=== PATIENT | female | born 2000 | race African-American/Black ===

== ENCOUNTER 2020-12-16 02:48 | Emergency (ER) | payer MEDICAID ==
[~2020-12-16] VITALS: Ht 167.6 cm; Wt 64.0 kg
[2020-12-16 04:32] LABS: BASOPHILS % 0.3 % (0.0-2.0); EOSINOPHILS % 0.2 % (0.0-5.0); HEMATOCRIT. 35.2 % (36.0-48.0); HEMOGLOBIN. 11.7 g/dL (12.0-16.0); LYMPHOCYTES % 10.9 % (20.0-50.0); MEAN CORPUSCULAR HEMOGLOBIN 30.9 pg (28.0-32.0); MEAN CORPUSCULAR VOLUME 92.7 fL (81.0-99.0); MEAN PLATELET VOLUME 8.6 fl (7.4-10.4); MONOCYTES % 6.6 % (2.0-8.0); PLATELET 219 x1000/uL (130-400); RED BLOOD CELL COUNT 3.79 mill/uL (4.2-5.4); RED CELL DISTRIBUTION WIDTH 14.1 % (11.6-14.6)
[2020-12-16 04:36] LABS: CHLORIDE 108 mEq/L (98-107)
[2020-12-16 04:45] LABS: ETHANOL BLOOD < 10 mg/dL
[2020-12-16 04:51] LABS: *AMPHETAMINES SCREEN URINE NEGATIVE (NEGATIVE); *BARBITURATES SCREEN URINE NEGATIVE (NEGATIVE); *BENZODIAZEPINES SCREEN URINE NEGATIVE (NEGATIVE); *COCAINE SCREEN URINE NEGATIVE (NEGATIVE); METHADONE URINE SCREEN NEGATIVE (NEGATIVE); OPIATES URINE SCREEN NEGATIVE (NEGATIVE); PHENCYCLIDINE URINE SCREEN NEGATIVE (NEGATIVE)
[2020-12-16 04:59] LABS: HCG SCREEN NEGATIVE
[2020-12-16 05:01] LABS: CANNABINOID URINE SCREEN PRESUMTIVE POSITIVE (NEGATIVE)
[2020-12-16 11:56] VITALS: BP 95/62
== END 2020-12-16 12:21 | disposition home or self-care (01) ==
LOC: ER 02:48
DX: R45.851 Suicidal ideations (principal); R45.1 Restlessness and agitation; F41.9 Anxiety disorder, unspecified; Z20.822 Contact with and (suspected) exposure to COVID-19
CPT/HCPCS: 36415; 80053; 80305; 80307; 80320; 80329; 81025; 84703; 85025; 93005; 99284; C9803; U0003; U0005; Z7610; G0480

== ENCOUNTER 2023-03-14 05:08 | Emergency (ER) | payer BC, MEDICAID ==
[~2023-03-14] VITALS: Ht 167.6 cm; Wt 73.0 kg
[2023-03-14 05:14] VITALS: BP 106/73; PULSE 73; RESP 19; TEMP 98; O2SAT 100
[2023-03-14] MEDS ORDERED: AMOX1TAB16 PO (05:47)
[2023-03-14] MEDS ORDERED: DOCO2CRE5 TP (05:47)
== END 2023-03-14 06:14 | disposition home or self-care (01) ==
LOC: ER 05:08
DX: H66.92 Otitis media, unspecified, left ear (principal); B00.1 Herpesviral vesicular dermatitis; F12.90 Cannabis use, unspecified, uncomplicated; F41.9 Anxiety disorder, unspecified
CPT/HCPCS: 99283

== ENCOUNTER 2023-12-01 21:04 | Emergency (ER) | payer BC ==
[~2023-12-01] VITALS: Ht 167.6 cm; Wt 66.0 kg
[~2023-12-01 21:04] MED LIST: AMOX1TAB16 PO; DOCO2CRE5 TP
[2023-12-01 21:19] VITALS: O2SAT 100
[2023-12-01] MEDS ORDERED: ONDANSETRON HCL 4MG/2ML INJ IV ONE (22:15)
[2023-12-01 22:38] LABS: BASOPHILS % 0.8 % (0.0-2.0); EOSINOPHILS % 0.4 % (0.0-5.0); LYMPHOCYTES % 31.9 % (20.0-50.0); MEAN CORPUSCULAR HEMOGLOBIN 32.9 pg (28.0-32.0); MEAN CORPUSCULAR HGB CONC 34.1 g/dL (31.0-37.0); MEAN CORPUSCULAR VOLUME 96.5 fL (81.0-99.0); MEAN PLATELET VOLUME 8.7 fl (7.4-10.4); MONOCYTES % 8.1 % (2.0-8.0); NEUTROPHILS % 58.8 % (40.0-76.0); PLATELET 271 x1000/uL (130-400); RED BLOOD CELL COUNT 4.56 mill/uL (4.2-5.4); RED CELL DISTRIBUTION WIDTH 13.4 % (11.6-14.6); WHITE BLOOD COUNT 3.4 x1000/uL (4.5-11.0)
[2023-12-01 22:40] LABS: CHLORIDE 103 mEq/L (98-107); POTASSIUM 2.9 mEq/L (3.5-5.1)
[2023-12-01 22:41] LABS: SODIUM 138 mEq/L (136-145)
[2023-12-01 22:42] LABS: CALCIUM 11.1 mg/dL (8.7-10.4); CARBON DIOXIDE 22 mEq/L (21-32)
[2023-12-01 22:46] LABS: CREATININE 1.1 mg/dL (0.6-1.0)
[2023-12-01 22:47] LABS: GLUCOSE 100 mg/dL (70-105); UREA NITROGEN BLOOD 9 mg/dL (9-23)
[2023-12-01 22:57] LABS: ETHANOL BLOOD < 10 mg/dL (<10)
[2023-12-01] MEDS: ONDANSETRON HCL 4MG/2ML INJ IV NR (23:15)
[2023-12-02] MEDS: WATER IV NR (00:04)
[2023-12-02] MEDS: ACETYLCYSTEINE IV NR (00:04)
[2023-12-02] MEDS: DEXT 5% IV NR (00:04)
[2023-12-02] MEDS ORDERED: ONDANSETRON HCL 4MG/2ML INJ IV PRN (01:15)
[2023-12-02] MEDS ORDERED: DIPHENHYDRAMINE 50MG/ML VIAL IV PRN (01:15)
[2023-12-02] MEDS ORDERED: METOCLOPRAMIDE HCL 10MG/2ML VIAL IV PRN (02:15)
[2023-12-02] MEDS: SODIUM CHLORIDE 0.9% 1,000 ML IV SCH (02:16)
[2023-12-02] MEDS: KCL 20MEQ/100ML PREMIX 100 ML IV SCH (02:44)
[2023-12-02 06:17] LABS: CARBON DIOXIDE 23 mEq/L (21-32); CHLORIDE 108 mEq/L (98-107); POTASSIUM 3.8 mEq/L (3.5-5.1); SODIUM 138 mEq/L (136-145)
[2023-12-02 06:18] LABS: CALCIUM 9.7 mg/dL (8.7-10.4)
[2023-12-02 06:22] LABS: CREATININE 0.8 mg/dL (0.6-1.0)
[2023-12-02 06:23] LABS: GLUCOSE 109 mg/dL (70-105); UREA NITROGEN BLOOD 10 mg/dL (9-23)
[2023-12-02 06:24] LABS: ALANINE AMINOTRANSFERASE < 7 IU/L (10-49)
[2023-12-02 06:25] LABS: ALBUMIN 4.6 g/dL (3.2-4.8); ASPARTATE AMINOTRANSFERASE 18 IU/L (<34); BILIRUBIN TOTAL 1.9 mg/dL (0.1-1.0); PHOSPHORUS 2.8 mg/dL (2.5-4.9); PROTEIN TOTAL 7.9 g/dL (6.0-8.3)
[2023-12-02 06:27] LABS: ACETAMINOPHEN 11 ug/mL (10-30)
[2023-12-02] MEDS: FAMOTIDINE 20MG/2ML VIAL IV SCH (09:15)
[2023-12-02 12:33] VITALS: TEMP 37.00296
[2023-12-02 15:31] VITALS: BP 102/66; PULSE 61; RESP 15; O2SAT 99
== END 2023-12-02 15:56 | disposition home or self-care (01) ==
LOC: ER 21:04 → EDBEDREQTM 12-02 00:29 → EDBEDREQ 12-02 00:29 → EDBEDREQSVC 12-02 08:34 → ER 12-02 15:56
DX: T39.1X2A Poisoning by 4-Aminophenol derivatives, intentional self-harm, initial encounter (principal); F32.9 Major depressive disorder, single episode, unspecified; X58.XXXA Exposure to other specified factors, initial encounter
CPT/HCPCS: 80053; 80048; 80307; 80329; 80320; 83735; 84100; 85025; 36415; 96375 ×2; 99291; 96361; 96365; 96366; J2405; Z7610 ×2; J0132; J3490; J3480; J7060; G0480